=== PATIENT | female | born 2000 | race Caucasian/White ===

== ENCOUNTER 2019-01-15 19:07 | Emergency (ER) | payer OTHER ==
[2019-01-15 19:37] LABS: INR-International Normal Ratio 1.1; PTT 30.2 SEC (22.9-36.1); Prothrombin Time 14.3 SEC (12.0-14.7)
[2019-01-15 19:46] LABS: ALT (SGPT) 9 U/L (8-55); AST (SGOT) 9 U/L (5-30); Albumin 3.4 g/dL (3.5-5.0); Alkaline Phosphatase 175 U/L (40-100); Anion Gap 20 mmol/L (10-20); BUN (Urea Nitrogen) 6 mg/dL (8.4-21.0); Bilirubin, Total 0.6 mg/dL (0.2-1.2); Calc. Creatinine Clearance 0 mL/min (70-130); Calcium 9.7 mg/dL (7.8-10.44); Carbon Dioxide 15 mmol/L (22-29); Chloride 109 mmol/L (98-107); Estimated GFR-MDRD Greater than 90; Globulin 3.5 g/dL (2.4-3.5); Glucose 152 mg/dL (70-105); Potassium 3.5 mmol/L (3.5-5.1); Protein, Total 6.9 g/dL (6.0-8.3); Sodium 140 mmol/L (136-145)
[2019-01-15 19:47] LABS: Band 3 % (5-11); MDiff Complete? YES; Mean Corpuscular HGB CONC 30.2 g/dL (32.0-36.0); Mean Corpuscular Hemoglobin 23.3 pg (25.0-35.0); Mean Corpuscular Volume 77.2 fL (78.0-98.0); Mean Platelet Volume 8.4 fL (7.4-10.4); Microcytosis SLIGHT = 6-15 cells (100X) (0-5/hpf); Monocytes 8 % (0-4); Neutrophil 89 % (31-61); Platelet Count 377 thou/uL (130-400); RBC Distribution Width 15.8 % (11.5-14.5); Red Blood Cell (RBC) Count 5.15 mill/uL (4.00-5.20); White Blood Cell (WBC) Count 28.9 thou/uL (4.8-10.8)
== END 2019-01-15 19:55 | disposition short-term general hospital (02) ==
LOC: BURERS 19:07
DX: O80 Encounter for full-term uncomplicated delivery (principal); Z87.891 Personal history of nicotine dependence; O99.343 Other mental disorders complicating pregnancy, third trimester; F31.9 Bipolar disorder, unspecified; Z3A.39 39 weeks gestation of pregnancy
CPT/HCPCS: 36416; 80053; 85025; 85610; 85730; 99284; A4353